=== PATIENT | female | born 1960 | race Caucasian/White ===

== ENCOUNTER 2023-11-06 09:36 | Outpatient (CLI) | payer SELFPAY ==
--- NOTE | 2023-11-06 11:01 | XRAY Report ---
PROCEDURE: Knee 2V LT INDICATIONS: KNEE PAIN, LEFT TECHNIQUE: 2 views of the knee(s) were acquired. COMPARISON: None. FINDINGS: Bones: No fractures or dislocations. No suspicious bony lesions. Minimal tricompartmental degener ative changes of the left knee with minimal medial femorotibial compartment joint space narrowing. Soft tissues: No knee joint effusion. No suspicious soft tissue calcifications or masses. IMPRESSION: No acute bony abnormality. Minimal tricompartmental osteoarthrosis of the left knee with associated m inimal joint space loss of the medial femoral tibial compartment. Reviewed by: Rogelio Sutherland MD on 11/06/2023 10:00 AM DINORAH Approved by: Rogelio Sutherland MD on 11/06/2023 10:00 AM DINORAH Station ID: [id number]
--- NOTE | 2023-11-06 11:04 | XRAY Report ---
PROCEDURE: Shoulder 2+V BL INDICATIONS: SHOULDER PAIN, BILATERAL TECHNIQUE: 2 views of each of the bilateral shoulder were acquired. COMPARISON: None. FINDINGS: Bones: No acute fractures or dislocations. Chronic appearing possible fracture of the right humeral head as well as chronic calcification over the superolateral margin of the right shoulder. Mild degen erative changes of the bilateral acromioclavicular joints. No suspicious bony lesions. Visualized ri bs appear intact. Soft tissues: No suspicious soft tissue calcifications. The visualized lungs are within normal limi ts. IMPRESSION: Chronic appearing, possible fracture of the right humeral head with associated chronic calcifications over the superolateral margin of the right shoulder. Recommend dedicated 4 view right shoulder radio graphic series for further evaluation. Left shoulder without acute osseous abnormalities. Mild degenerative changes of the bilateral acromioclavicular joints. Reviewed by: Rogelio Sutherland MD on 11/06/2023 10:03 AM DINORAH Approved by: Rogelio Sutherland MD on 11/06/2023 10:03 AM DINORAH Station ID: [id number]
--- NOTE | 2023-11-06 11:06 | XRAY Report ---
PROCEDURE: Thoracic Spine 2V INDICATIONS: BACK PAIN, THORACIC REGION TECHNIQUE: 2 views of the thoracic spine were acquired. COMPARISON: None. FINDINGS: Bones: No fractures or dislocations. Gentle dextrocurvature at the thoracolumbar spine. No suspiciou s bony lesions. 12 pairs of ribs are noted, and appear intact where visualized. Mild multilevel tho racic spondylitic changes. No acute compression fractures. Soft tissues: No paravertebral stripe thickening. IMPRESSION: Thoracic spine without acute osseous abnormalities. Mild multilevel thoracic spondylosis. Gentle dext rocurvature at the thoracolumbar junction. Reviewed by: Rogelio Sutherland MD on 11/06/2023 10:05 AM DINORAH Approved by: Rogelio Sutherland MD on 11/06/2023 10:05 AM DINORAH Station ID: [id number]
== END 2023-11-06 09:37 | disposition home or self-care (01) ==
LOC: DI.N 09:36
PROVIDERS: ATTEND Family Medicine
DX: M17.12 Unilateral primary osteoarthritis, left knee (principal); M19.011 Primary osteoarthritis, right shoulder; M19.012 Primary osteoarthritis, left shoulder; M25.811 Other specified joint disorders, right shoulder; M47.814 Spondylosis without myelopathy or radiculopathy, thoracic region; M41.9 Scoliosis, unspecified

== ENCOUNTER 2023-11-06 09:49 | Outpatient (CLI) | payer SELFPAY ==
[2023-11-06 12:41] LABS: BASOPHILS % (AUTO) 0.4 %; EOSINOPHILS # (AUTO) 0.1 10^3/uL (0.0-0.7); EOSINOPHILS % (AUTO) 1.4 %; HCT - HEMATOCRIT 28.3 % (37.0-47.0); HGB - HEMOGLOBIN 9.6 g/dL (12.0-16.0); LYMPHOCYTES # (AUTO) 1.2 10^3/uL (1.5-3.5); LYMPHOCYTES % (AUTO) 13.1 %; MEAN CORPUSCULAR HEMOGLOBIN 36.5 pg (27.0-31.0); MEAN CORPUSCULAR HGB CONC 33.9 g/dL (32.0-36.0); MEAN CORPUSCULAR VOLUME 107.6 fL (81.0-99.0); MEAN PLATELET VOLUME 8.4 fL (7.9-10.8); MONOCYTES # (AUTO) 0.8 10^3/uL (0.0-1.0); NEUTROPHILS # (AUTO) 6.9 10^3/uL (1.5-6.6); NEUTROPHILS % (AUTO) 75.3 %; PLT - PLATELET COUNT 526 10^3/uL (130-450); RED BLOOD COUNT 2.63 10^6/uL (4.20-5.40); RED CELL DISTRIBUTION WIDTH 12.8 % (12.0-15.0); WHITE BLOOD COUNT 9.2 x10^3/uL (4.8-10.8)
[2023-11-06 13:07] LABS: ALBUMIN 3.8 g/dL (3.2-5.5); ALBUMIN/GLOBULIN RATIO 1.5 (1.0-2.2); BILIRUBIN,TOTAL 0.3 mg/dL (0.2-1.0); CALCIUM 9.5 mg/dL (8.5-10.3); CREATININE 0.5 mg/dL (0.6-1.3); POTASSIUM 3.7 mmol/L (3.5-4.5); TOTAL PROTEIN 6.3 g/dL (6.4-8.9)
== END 2023-11-06 09:50 | disposition home or self-care (01) ==
LOC: LAB.N 09:49
PROVIDERS: ATTEND Family Medicine
DX: M25.562 Pain in left knee (principal); M54.6 Pain in thoracic spine; M25.511 Pain in right shoulder
CPT/HCPCS: 36415; 80053; 85025; 85651